=== PATIENT | female | born 1955 | race Two or more races ===

== ENCOUNTER 2021-12-10 09:29 | Outpatient (REF) | payer MEDICAID, SELFPAY ==
--- NOTE | ~2021-12-10 | XR_ITS ---
EXAMINATION: XR KNEE, RIGHT CLINICAL INFORMATION: Pain. COMPARISON: None TECHNIQUE: Four views of the right knee. FINDINGS: The there is mild reduction in medial and patellofemoral compartment joint space without loose bodies or bony erosive changes. There is mild superior patellar enthesophyte. No abnormal joint effusion seen. The soft tissues are normal. 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 No visible acute fracture or dislocation. No abnormal joint effusion seen.
== END 2021-12-10 09:30 | disposition home or self-care (01) ==
LOC: HO.XRAY 09:29
PROVIDERS: PCP Internal Medicine; Visit Provider Internal Medicine
DX: M25.561 Pain in right knee (principal)
CPT/HCPCS: 73564